=== PATIENT | female | born 1950 | race Caucasian/White ===

== ENCOUNTER 2017-06-10 16:16 | Emergency (ER) | payer MEDICARE ==
[2017-06-10] MEDS ORDERED: Adacel (T-DAP) 0.5 ML VIAL ONE (16:48)
[2017-06-10] MEDS ORDERED: Lidocaine 1% PF 5 ML VIAL ONE (17:10)
[2017-06-10] MEDS ORDERED: HYDROcodone/Acetaminophen 7.5/325 mg Tablet ONE ×2 (17:34→17:41)
[2017-06-10] MEDS ORDERED: Bacitracin Zinc 1 Packet ONE (17:35)
== END 2017-06-10 17:51 | disposition home or self-care (01) ==
LOC: ERS 16:16
DX: S61.216A Laceration without foreign body of right little finger without damage to nail, initial encounter (principal); I10 Essential (primary) hypertension; F41.9 Anxiety disorder, unspecified; Z87.01 Personal history of pneumonia (recurrent); W26.0XXA Contact with knife, initial encounter
CPT/HCPCS: 12001; 90471; 90715; J2001